=== PATIENT | female | born 1980 | race Asian ===

== ENCOUNTER 2024-04-15 00:05 | Emergency (ER) | payer SELFPAY ==
[2024-04-15 00:17] VITALS: BP 115/73; PULSE 120; RESP 20; TEMP 98.4; BMI 31.2
== END 2024-04-15 02:02 | disposition home or self-care (01) ==
LOC: FER 00:05
DX: Z00.00 Encounter for general adult medical examination without abnormal findings (principal)
CPT/HCPCS: 99281-25

== ENCOUNTER 2024-04-21 03:00 | Emergency (ER) | payer SELFPAY ==
[2024-04-21 03:17] VITALS: BMI 31.1
[2024-04-21 03:25] VITALS: BP 129/89; PULSE 129; RESP 20; TEMP 99
[2024-04-21] MEDS ORDERED: ACETAMINOPHEN 500 MG TABLET (FP) ONE ×2 (03:51→03:53)
== END 2024-04-21 06:53 | disposition left against medical advice (07) ==
LOC: FER 03:00
DX: F10.129 Alcohol abuse with intoxication, unspecified (principal); Y90.9 Presence of alcohol in blood, level not specified
CPT/HCPCS: 70450-TC; 70486-TC; 72125-TC; 99284-25